=== PATIENT | female | born 1995 | race Asian ===

== ENCOUNTER 2024-10-18 12:19 | Emergency (ER) | payer OTHER, SELFPAY ==
[2024-10-18 12:24] VITALS: BP 112/74
--- NOTE | 2024-10-18 14:07 | ED.GENMED ---
History of Present Illness
General
Chief Complaint: Crisis Evaluation
Source: patient
Exam Limitations: none
Time Seen by Provider: 10/18/24 13:58
Nursing documentation reviewed up to this point in time: agreed with
History of Present Illness
History of Present Illness:
Patient is a 28 year old F with history anxiety, autism spectrum disorder presenting to the emergency department with mom for crisis evaluation. Patient reports increasing depression over the past few months as she has been unable to find a job.
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 Patient is applied to 'over 4000 jobs' without receiving an offer. Patient states she feels very overwhelmed about the uncertainty of her future.
She lives at home with her mother.
Patient's mom states that over the past 2 weeks she has seemed increasingly depressed and noticed that she does not seem to want to get out of bed.
Patient is currently seeing a psychiatrist once a month who prescribes her medications including fluoxetine. She also sees a therapist on Zoom once a week. Her psychiatrist recommended that she come be evaluated by [facility] as he
thinks an intensive outpatient program may be beneficial to patient.
Patient denies any suicidal ideations. She denies any homicidal ideations or visual/auditory hallucinations. Patient has had no past suicidal attempts. She denies alcohol abuse or drug use.
Review of Systems
Review of Systems
Allergies reviewed?: Yes
All Other Systems: ROS reviewed and negative except as documented in HPI and ROS
Phy Exam
Physical Exam
Physical Exam:
Vitals: Patient's vital signs are stable. Afebrile
General: Patient is well appearing, no acute distress
Skin: Warm and dry, no rashes or lesions
Head: Normocephalic, atraumatic
Eyes: Sclera nonicteric.
Throat: Protecting airway
Neck: Normal ROM
Cardiac: Regular rate and rhythm.
Pulm: Lungs clear bilaterally.
Abdomen: No abdominal tenderness.
Extremities: No evidence of cyanosis or edema
Neuro: AAOx3. Grossly intact.
Psychiatric: Normal affect. Answers questions. Maintains eye contact. Not responding to any internal stimuli on exam.
Course
Orders/Labs/Results
Orders:
Orders
10/18/24 12:35
Crisis Consult Urgent
Reason for Consult: depression
Vital Signs
Initial and Last Documented VS:
Initial Vital Signs
Temp Pulse Resp BP Pulse Ox
97.9 F 84 16 112/74 98
10/18/24 12:24 10/18/24 12:24 10/18/24 12:24 10/18/24 12:24 10/18/24 12:24
Last Documented Vital Signs
Temp Pulse Resp BP Pulse Ox
97.9 F 84 16 112/74 98
10/18/24 12:24 10/18/24 12:24 10/18/24 12:24 10/18/24 12:24 10/18/24 12:24
MDM/Problems Addressed
Differential Diagnosis Includes:
Not limited to: Anxiety, depression, SI, acute psychosis
MDM/Problems Addressed:
28-year-old female presenting with mom for crisis evaluation due to worsening depression over the past week. No SI, HI, or hallucinations. No past suicidal attempts. Patient currently sees a psychiatrist once a month and follows with a therapist
once a week on Zoom. She does live at home with her mom and has good support system. Vitals stable. Physical exam as above. I do not feel patient is acutely suicidal. No homicidal ideations. Patient has an excellent support system at home and
close follow-up with her therapist and psychiatrist. Ultimately�do not feel that patient is a threat to herself or others. Feel patient would be a good fit for intensive outpatient program.
Update: After evaluation from crisis team - patients family has been provided numerous resources for IOP. They do not wish to pursue inpatient treatment which I feel is reasonable. Patient will continue to follow with psychiatry/therapsit and enroll
in out-patient program. Patients family comfortable with plan. Return precautions discussed.
Chronic conditions affecting care:
Anxiety, autism spectrum disorder
*Pulse Oximetry
Patient hypoxic: no
*EKG
Interpreted by ED Provider?: NA
*Box Tender Interpretation
Rate: Box Tender- N/A
*Critical Care Note
Total Time (30-74mins, 75-104mins- exclusive of procedures): Not Applicable
ED Attending Note
-
Portions of this chart may have been created with voice recognition software.� Occasional wrong word or��sound alike� substitutions may have occurred due to the inherent limitations of voice recognition software.
Discharge Plan
Departure
Patient Disposition: Home (Routine Discharge)
Date of Disposition: 10/18/24
Time of Disposition: 16:41
Patient with high blood pressure during this ER visit?: No
Condition: Good
Covid-19: Not Applicable
Discharge Problem:
Depression
Instructions: Depression, Adult (DC), Anxiety, Adult (DC)
Referrals:
Conchita Del Toro CRNP [Family Provider] -
Activity Restrictions/Additional Instructions:
RETURN TO THE EMERGENCY DEPARTMENT WITH ANY THOUGHTS OF HARMING YOURSELF OR OTHERS, WORSENING DEPRESSION, OR ANY OTHER CONCERNS
- As discussed�you were given multiple resources today for both partial placement/intensive outpatient programs. You should enroll in 1 of these over the next few days.
- Continue take all your medications as prescribed.
- Follow-up with your psychiatrist and therapist for further evaluation/management
Monitor your symptoms closely and return to the emergency department with any acute worsening/new symptoms or any other concerns
Interventions
Interventions:
*Risk Screen - Suicide Last Done: 10/18/24 12:24
*General Assessment Last Done: 10/18/24 12:24
*Neglect/Abuse Screening Last Done: 10/18/24 12:24
*ED- Fall Risk Assessment Last Done: 10/18/24 14:43
*ED COVID-19 Vaccine History Last Done: 10/18/24 14:43
*Nursing Disposition Last Done: 10/18/24 16:52
ED-Psychological Assessment Last Done: 10/18/24 15:30
Discharge Date and Time
Discharge Date/Time: 10/18/24 16:54
Print Language: ROMANSH
== END 2024-10-18 16:54 | disposition home or self-care (01) ==
LOC: EMR 12:19
PROVIDERS: EMERGENCY PHYSICIAN Student in an Organized Health Care Education/Training Program; FAMILY PHYSICIAN Nurse Practitioner Primary Care
DX: F32.A Depression, unspecified (principal); F84.0 Autistic disorder; F41.9 Anxiety disorder, unspecified; Z59.6 Low income
CPT/HCPCS: 99283

== ENCOUNTER 2024-11-29 11:16 | Emergency (ER) | payer OTHER, SELFPAY ==
[2024-11-29 11:18] VITALS: BP 118/77
--- NOTE | 2024-11-29 11:46 | ED.GENMED ---
History of Present Illness
General
Chief Complaint: Crisis Evaluation
Source: patient, records and family
Exam Limitations: none
Time Seen by Provider: 11/29/24 11:25
History of Present Illness
History of Present Illness:
29yoF with a history of depression and autism presenting with her mother for psychiatric evaluation. Patient was seen in the ED last month for depression and she started the partial program at [facility] about 3 weeks ago. She has been
undergoing some medication adjustments. She was taken off of her Abilify and started on guanfacine and Latuda. Symptoms seem to be worsening despite this. Patient has been feeling hopeless and does not have the motivation to get out of bed. She
will go several days without taking a shower. Mother has been receiving text messages over the past few days about . She has received texts messages stating that patient wishes she has terminal cancer and asking if she will be cremated when
she dies. She texted her today that she just wanted to . Mother left work early and brought her to the ED for evaluation. No prior history of suicide attempts and she denies any active plan.
Her depression started to worsen a few months ago. She was supposed to enter a PhD program in epidemiology but the program lost funding. 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
Phy Exam
General Physical Exam
General Presentation: well appearing and no apparent distress
General Skin: warm and dry
General Habitus: normal
General Mental: alert
ENT Exam
ENT Exam: normocephalic
Pulmonary Exam
Pulmonary Exam: no respiratory distress
Neurological Exam
Neurological Exam: alert
Bruna Coma Scale
Eye Opening: Spontaneous
Verbal Response: Oriented
Motor Response: Obeys Commands
GCS Total Score: 15
Skin Exam
Skin Exam: normal color and warm/dry
Psychiatric Exam
Psychiatric Exam: anxious and other (+Passive SI. Cooperative during assessment. No signs of psychosis. )
Course
Orders/Labs/Results
Orders:
Orders
11/29/24 11:20
Crisis Consult Urgent
Reason for Consult: +SI
11/29/24 11:43
1:1 Observation - Suicide/ Violent Behavior As Directed
Vital Signs
Initial and Last Documented VS:
Initial Vital Signs
Temp Pulse Resp BP Pulse Ox
98.6 F 77 16 118/77 98
11/29/24 11:18 11/29/24 11:18 11/29/24 11:18 11/29/24 11:18 11/29/24 11:18
Last Documented Vital Signs
Temp Pulse Resp BP Pulse Ox
98.6 F 77 16 118/77 98
11/29/24 11:18 11/29/24 11:18 11/29/24 11:18 11/29/24 11:18 11/29/24 11:18
MDM/Problems Addressed
Differential Diagnosis Includes:
29yoF here for psychiatric evaluation. Currently in the [facility] partial program. Has been increasingly depressed and has been texting her mother about . Denies any plans of suicide and has no history of suicide attempts. Patient medically
cleared for crisis evaluation.
Patient was evaluated by the crisis team. Patient not interested in inpatient treatment at this time and there are no grounds for 302. Patient interested in possible respite care and crisis team provided her contact information for [facility]. She is
scheduled to attend her partial program tomorrow. Both patient and mother are in agreement with plan and she was discharged in stable condition.
*Critical Care Note
Total Time (30-74mins, 75-104mins- exclusive of procedures): Not Applicable
ED Attending Note
-
Portions of this chart may have been created with voice recognition software.� Occasional wrong word or��sound alike� substitutions may have occurred due to the inherent limitations of voice recognition software.
Discharge Plan
Departure
Patient Disposition: Home (Routine Discharge)
Date of Disposition: 11/29/24
Time of Disposition: 14:31
Patient with high blood pressure during this ER visit?: No
Discharge Problem:
Encounter for psychiatric assessment, Suicidal ideations
Instructions: Depression in adults - Discharge instructions
Referrals:
Conchita Del Toro CRNP [Family Provider]
Activity Restrictions/Additional Instructions:
Please go to your partial program tomorrow and follow-up with the outpatient resources provided. Return to the ER with any worsening symptoms.
Interventions
Interventions:
*Risk Screen - Suicide Last Done: 11/29/24 11:18
*General Assessment Last Done: 11/29/24 11:48
*Neglect/Abuse Screening Last Done: 11/29/24 11:18
*ED- Fall Risk Assessment Last Done: 11/29/24 11:48
*ED COVID-19 Vaccine History Last Done: 11/29/24 11:48
ED-Psychological Assessment Last Done: 11/29/24 11:48
Discharge Date and Time
Print Language: GRENADIAN
[2024-11-29 11:48] VITALS: BMI 24.7
--- NOTE | 2024-11-29 11:51 | EDRN ---
Received patient in bed. Patient with flat affect. Mother answering most of the questions asked to the patient. 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 Mother stated that the
patient has been working in different job settings but 'feels like her purpose is gone since she's not doing research'. Patient stated that she has thoughts of wanting to hurt herself but does not have any plans on how she would do it. Patient is
currently in outpatient program.
--- NOTE | 2024-11-29 14:54 | EDRN ---
Reviewed discharge instructions with patient. Verbalized understanding. Ambulated with steady gait to the lobby.
[2024-11-29 14:55] VITALS: BP 103/69
== END 2024-11-29 14:50 | disposition home or self-care (01) ==
LOC: EMR 11:16
PROVIDERS: EMERGENCY PHYSICIAN Emergency Medicine; FAMILY PHYSICIAN Nurse Practitioner Primary Care
DX: R45.851 Suicidal ideations (principal); F32.A Depression, unspecified; F84.0 Autistic disorder
CPT/HCPCS: 99282

== ENCOUNTER 2025-04-08 15:56 | Emergency (ER) | payer OTHER, SELFPAY ==
[2025-04-08 15:59] VITALS: BP 125/73
--- NOTE | 2025-04-08 17:52 | ED.GENMED ---
ED Provider Triage
<Sherwin Shelby MD, Resident - Last Filed: 04/08/25 19:55>
-
Patient seen by provider in Triage?: Seen in Triage
History of Present Illness
<Sherwin Shelby MD, Resident - Last Filed: 04/08/25 19:55>
General
Chief Complaint: Crisis Evaluation
Source: patient and family
Exam Limitations: none
Time Seen by Provider: 04/08/25 17:45
History of Present Illness
History of Present Illness:
29-year-old female present with her mother at bedside comes in feeling depressed/upset/anxious and has suicidal ideations. Claims that she does not want to live anymore, the stressor being at work where she feels like she is being targeted for
having autism. Asked for an accommodation at work due to her autism and she said that they made it a bigger deal than what it was and denied the request. Has a previous psychiatric history of anxiety, depression, autism and is on Vraylar and Prozac.
Has had previous admissions to [facility] and crisis evaluations for similar symptoms in the past. Currently lives at a residential [place] and works with [employer] where they are trying to help her find another job. No active plans of
suicide, no homicidal ideations, visual hallucinations, auditory hallucinations. No substance abuse issues. No fever, chills, nausea, cough, vomiting, abdominal pain, diarrhea, numbness, weakness of extremities.
Past History
<Sherwin Shelby MD, Resident - Last Filed: 04/08/25 19:55>
Past History
ED Past Medical History: Other (And denied the request crisis encounter for psychiatric assessment, depression)
ED Past Surgical History: None
Social History
Tobacco: Non-smoker
Alcohol: None
Drug: None
Personal: Single
Living: with family
Employment: Employed
Review of Systems
<Sherwin Shelby MD, Resident - Last Filed: 04/08/25 19:55>
Review of Systems
All Other Systems: ROS reviewed and negative except as documented in HPI and ROS
Phy Exam
<Sherwin Shelby MD, Resident - Last Filed: 04/08/25 19:55>
General Physical Exam
General Presentation: well appearing and no apparent distress
General Skin: warm
General Habitus: normal
General Mental: alert
Cardiovascular Exam
Cardiovascular Exam: regular rate/rhythm and no edema
Pulmonary Exam
Pulmonary Exam: lungs clear, no respiratory distress, no rales and no rhonchi
Gastrointestinal Exam
Gastrointestinal Exam: normal bowel sounds, non tender, soft and non distended
Neurological Exam
Neurological Exam: alert and oriented x3
Musculoskeletal Exam
Musculoskeletal Exam: full ROM and no edema
Skin Exam
Skin Exam: normal color, warm/dry and no rash
Psychiatric Exam
Psychiatric Exam: normal mood/affect
Course
<Sherwin Shelby MD, Resident - Last Filed: 04/08/25 19:55>
Orders/Labs/Results
Orders:
Orders
04/08/25 17:51
Crisis Consult Urgent
Reason for Consult: depression
Vital Signs
Initial and Last Documented VS:
Initial Vital Signs
Temp Pulse Resp BP Pulse Ox
98.0 F 78 20 125/73 98
04/08/25 15:59 04/08/25 15:59 04/08/25 15:59 04/08/25 15:59 04/08/25 15:59
Last Documented Vital Signs
Temp Pulse Resp BP Pulse Ox
98.0 F 78 20 125/73 98
04/08/25 15:59 04/08/25 15:59 04/08/25 15:59 04/08/25 15:59 04/08/25 18:25
<Rc Looney, DO - Last Filed: 04/08/25 19:39>
Orders/Labs/Results
Orders:
Orders
04/08/25 17:51
Crisis Consult Urgent
Reason for Consult: depression
Vital Signs
Initial and Last Documented VS:
Initial Vital Signs
Temp Pulse Resp BP Pulse Ox
98.0 F 78 20 125/73 98
04/08/25 15:59 04/08/25 15:59 04/08/25 15:59 04/08/25 15:59 04/08/25 15:59
Last Documented Vital Signs
Temp Pulse Resp BP Pulse Ox
98.0 F 78 20 125/73 98
04/08/25 15:59 04/08/25 15:59 04/08/25 15:59 04/08/25 15:59 04/08/25 18:25
<Sherwin Shelby MD, Resident - Last Filed: 04/08/25 19:55>
MDM/Problems Addressed
Differential Diagnosis Includes:
Depression, anxiety disorder, bipolar, adjustment disorder, suicidal ideations, autistic spectrum disorder
MDM/Problems Addressed:
- crisis consulted
- Will discharge patient into partial hospitalization program.
<Sherwin Shelby MD, Resident - Last Filed: 04/08/25 19:55>
*Pulse Oximetry
SaO2: 98
Oxygen Mode of Delivery: Room air
Patient hypoxic: no
*Critical Care Note
Total Time (30-74mins, 75-104mins- exclusive of procedures): Not Applicable
ED Attending Note
<Sherwin Shelby MD, Resident - Last Filed: 04/08/25 19:55>
-
Portions of this chart may have been created with voice recognition software.� Occasional wrong word or��sound alike� substitutions may have occurred due to the inherent limitations of voice recognition software.
<Rc Looney, - Last Filed: 04/08/25 19:39>
ED Attending Note
Patient seen and examined by attending physician: Yes
I performed a history and physical exam of patient and discussed management with resident, I reviewed resident's note and agree with documented findings and plan of care.: Yes
ED Attending Note:
I have reviewed and agree with history treatment plan by Sherwin Shelby MD. My exam revealed 29 yo female no active suicidal or homicidal ideation no auditory visual hallucinations. She has plans for future and was seen by crisis who arranged
partial hospitalization program. Do not feel patient is at risk f to herself or others at this time.
Discharge Plan
Departure
Patient Disposition: Home (Routine Discharge)
Date of Disposition: 04/08/25
Time of Disposition: 19:37
Patient with high blood pressure during this ER visit?: Yes
Condition: Good
Discharge Problem:
Depression
Instructions: Depression, Adult (DC), BLOOD PRESSURE
Referrals:
S[place] CRNP [Family Provider, Internal Medicine]
Activity Restrictions/Additional Instructions:
Follow up with partial hospitalization program. Return for any concerns.
Interventions
Interventions:
*Risk Screen - Suicide Last Done: 04/08/25 15:59
*General Assessment Last Done: 04/08/25 15:59
*Neglect/Abuse Screening Last Done: 04/08/25 19:43
*ED- Fall Risk Assessment Last Done: 04/08/25 19:43
*ED COVID-19 Vaccine History Last Done: 04/08/25 19:43
*ED Influenza Vaccine History Last Done: 04/08/25 19:43
*Nursing Disposition Last Done: 04/08/25 19:43
ED-Psychological Assessment Last Done: 04/08/25 19:43
Discharge Date and Time
Discharge Date/Time: 04/08/25 19:46
Print Language: SYRIAN
== END 2025-04-08 19:46 | disposition home or self-care (01) ==
LOC: EMR 15:56
PROVIDERS: EMERGENCY PHYSICIAN Emergency Medicine; FAMILY PHYSICIAN Nurse Practitioner Adult Health
DX: F32.A Depression, unspecified (principal); R03.0 Elevated blood-pressure reading, without diagnosis of hypertension; R45.851 Suicidal ideations; F84.0 Autistic disorder; F41.9 Anxiety disorder, unspecified; Z56.5 Uncongenial work environment
CPT/HCPCS: 99283

== ENCOUNTER 2025-06-02 14:06 | Emergency (ER) | payer OTHER, SELFPAY ==
[2025-06-02 14:07] VITALS: BP 124/76
--- NOTE | 2025-06-02 14:48 | ED.GENMED ---
History of Present Illness
General
Chief Complaint: Crisis Evaluation
Source: patient and family
Exam Limitations: none
Time Seen by Provider: 06/02/25 14:19
Nursing documentation reviewed up to this point in time: agreed with
History of Present Illness
History of Present Illness:
29-year-old female history of mental illness and autism companied by her mother had been in a partial program apparently made comments to her therapist today about thoughts of harming herself recommendation was that she come here and be placed into
the [facility] which is a residential program she has been there before done well not currently suicidal denies any ingestions no alcohol medications have been titrated as an outpatient no access to overdose to the meds, mom keeps him in a locked box
Past History
Past History
ED Past Medical History: Psychiatric and Other
ED Past Surgical History: None
Social History
Tobacco: Non-smoker
Alcohol: None
Drug: None
Personal: Single
Living: with family
Employment: Employed
Review of Systems
Review of Systems
All Other Systems: Not applicable
Constitutional: Reports weight gain (Due to his psychiatric)
Psychiatric: Reports depression, anxiety and suicidal (Not at this time)
Phy Exam
Physical Exam
Physical Exam:
Physical Exam
General: no apparent distress, not acutely ill
Neck: No jaundice
Heart: s1/s2 regular rate and rhythm, no murmur. equal radial pulses.
Lungs: no acute respiratory distress
Abdomen: Nontender
Neuro: alert and oriented. no focal neurological deficits
Skin: no rash
Psychiatric: Denies suicidal ideation cooperative
Extremities: no edema.
Course
Orders/Labs/Results
Orders:
Orders
06/02/25 14:12
1:1 Observation - Suicide/ Violent Behavior As Directed
Crisis Consult Urgent
Reason for Consult: SI
Vital Signs
Initial and Last Documented VS:
Initial Vital Signs
Temp Pulse Resp BP Pulse Ox
98.7 F 88 18 124/76 97
06/02/25 14:07 06/02/25 14:07 06/02/25 14:07 06/02/25 14:07 06/02/25 14:07
Last Documented Vital Signs
Temp Pulse Resp BP Pulse Ox
98.7 F 88 18 124/76 97
06/02/25 14:07 06/02/25 14:07 06/02/25 14:07 06/02/25 14:07 06/02/25 14:49
MDM/Problems Addressed
Differential Diagnosis Includes:
Anxiety depression suicidal ideation denies ingestion nontoxic
MDM/Problems Addressed:
Depression anxiety suicidal ideation without specific plan
Chronic conditions affecting care:
Depression anxiety
Chronic conditions affecting care: Psychiatric illness
Acute Exacerbation and/or Progression of Chronic Illness: Psychiatric illness
*Pulse Oximetry
SaO2: 97
Oxygen Mode of Delivery: Room air
Patient hypoxic: no
*Critical Care Note
Total Time (30-74mins, 75-104mins- exclusive of procedures): Not Applicable
Update Note
Update Note:
Update reviewed with crisis referrals to outpatient facilities okay to be discharged
ED Attending Note
-
Portions of this chart may have been created with voice recognition software.� Occasional wrong word or��sound alike� substitutions may have occurred due to the inherent limitations of voice recognition software.
Discharge Plan
Departure
Patient Disposition: Home (Routine Discharge)
Date of Disposition: 06/02/25
Time of Disposition: 17:11
Patient with high blood pressure during this ER visit?: No
Condition: Good
Discharge Problem:
Depression
Instructions: Depression, Adult (DC), Anxiety, Adult (DC)
Referrals:
UNKNOWN - PT NOT,INTERVIEWE [Family Provider]
Interventions
Interventions:
*Risk Screen - Suicide Last Done: 06/02/25 14:07
*General Assessment Last Done: 06/02/25 14:07
*Neglect/Abuse Screening Last Done: 06/02/25 14:07
ED-Psychological Assessment Last Done: 06/02/25 14:16
Discharge Date and Time
Print Language: CHILEAN
== END 2025-06-02 18:23 | disposition home or self-care (01) ==
LOC: EMR 14:06
PROVIDERS: EMERGENCY PHYSICIAN Emergency Medicine
DX: F32.A Depression, unspecified (principal); R45.851 Suicidal ideations; F84.0 Autistic disorder
CPT/HCPCS: 99285; 99282